=== PATIENT | male | born 1980 | race African-American/Black ===

== ENCOUNTER 2016-03-24 11:44 | Emergency (ER) | payer OTHER ==
--- NOTE | 2016-03-24 14:26 | EDDOCDS ---
Physician Documentation [facility] Name: Tera Felipe Age: 35 yrs Sex: Male : 1980 Arrival Date: 03/24/2016 Time: 11:44 Bed Triage 1 Private MD: Lyle Pa P. Disposition: 03/24/16 13:56 Discharged to Home/Self Care. Impression: Sprain of unspecified site of left knee. - Condition is Stable. - Discharge Instructions: Knee Sprain, [id number]. - Prescriptions for Mobic 7.5 mg Oral Tablet - take 1 tablet by ORAL route once daily take with food; 20 tablet. - Medication Reconciliation, Local Pharmacy Hours form. - Follow up: [facility]; When: 1 - 2 days; Reason: Further diagnostic work-up, Recheck today's complaints, Continuance of care. Follow up: Emergency Department; Reason: Worsening of conditions. - Problem is new. - Symptoms have improved. Historical: - Allergies: no known allergies; - Home Meds: 1. Vitamin D Oral 24976 unit weekly - PMHx: vitamin d diff; - PSHx: Reconstruction of nose; - Social history: Smoking status: Patient states former smoker of tobacco. No barriers to communication noted, The patient speaks fluent Senegalese. - Family history: Not pertinent. - : The pt / caregiver states he / she is not on anticoagulants. Home medication list is obtained from the patient. - Exposure Risk Screening:: None identified. Vital Signs: 03/24 11:45 BP 142 / 87; Pulse 60; Resp 16; Temp 98.7; Pulse Ox 100% on R/A; Weight 124.74 kg / 275 elp lbs; Height 6 ft. 3 in. (190.50 cm); Pain 7/10; 14:18 BP 131 / 89; Pulse 54; Resp 18; Pulse Ox 98% ; Pain 0/10; ms18 11:45 Body Mass Index 34.37 (124.74 kg, 190.50 cm) elp Procedures: 13:55 Fracture care/splinting: Splint applied to left knee using knee immobilizer, applied by ef1 nurse. Examined by me, post splint application: neurovascular intact, 2+ distal pulses palpable, brisk capillary refill noted, Patient tolerated well. MDM: 12:24 Knee, Complete Ordered. EDMS 13:39 Financial registration complete. mm15 13:55 Knee Immobilizer ordered. ef1 13:55 Crutches ordered. ef1 Signatures: Dispatcher [employer] EDMS Padmini Miguel, KIMBERLI AG ef1 Rekha Mishra,RN RN rs3 Candelaria Dee mm15 Jannet BowensRN RN ms18 MTDD
--- NOTE | 2016-03-24 14:26 | EDDOCDS ---
Nurse's Notes [facility] Name: Trea Felipe Age: 35 yrs Sex: Male : 1980 Arrival Date: 03/24/2016 Time: 11:44 Bed Triage 1 Private MD: Lyle Pa P. Diagnosis: Sprain of unspecified site of left knee Presentation: 03/24 11:53 Presenting complaint: Patient states: L knee pain/stiffness after playing basket ball rs3 yesterday. NO known injury. applied ice last night. no improvement with pain. Adult Sepsis Screening: The patient does not have new or worsening altered mentation. Patient's respiratory rate is less than 22. Systolic blood pressure is greater than 100. Patient has a qSOFA score of 0- Negative Sepsis Screen. Suicide/Homicide risk assessment- the patient denies having any suicidal and/or homicidal ideations and does not present with any other emotional, behavioral or mental health complaints. 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 Transition of care: patient was not received from another setting of care. 11:53 Acuity: PAOLA Level 4 rs3 11:53 Method Of Arrival: Walkin/Carried/Asstd rs3 Triage Assessment: 11:55 General: Appears in no apparent distress. Pain: Location: left knee. Pt Declines HIV rs3 testing. Historical: - Allergies: no known allergies; - Home Meds: 1. Vitamin D Oral 81406 unit weekly - PMHx: vitamin d diff; - PSHx: Reconstruction of nose; - Social history: Smoking status: Patient states former smoker of tobacco. No barriers to communication noted, The patient speaks fluent Greenlandic. - Family history: Not pertinent. - : The pt / caregiver states he / she is not on anticoagulants. Home medication list is obtained from the patient. - Exposure Risk Screening:: None identified. Screenin:23 Screening information is obtained from the patient. Fall risk: No risks identified. ms18 Assistance ADL's: requires no assistance with activities of daily living. Abuse/DV Screen: The patient / caregiver reports he/she is: not in a situation that causes fear, pain or injury. Nutritional screening: No deficits noted. Advance Directives: There is no living will. home support is adequate. Assessment: 14:18 General: Appears in no apparent distress, comfortable, Behavior is appropriate for age, ms18 cooperative. Pain: Denies pain. Neurological: Level of Consciousness is awake, alert, obeys commands, Oriented to person, place, time. Respiratory: No deficits noted. Derm: Skin is pink, warm & dry. normal. Musculoskeletal: Range of motion intact in all extremities. No deformity noted Swelling absent. Vital Signs: 11:45 BP 142 / 87; Pulse 60; Resp 16; Temp 98.7; Pulse Ox 100% on R/A; Weight 124.74 kg; elp Height 6 ft. 3 in. (190.50 cm); Pain 7/10; 14:18 BP 131 / 89; Pulse 54; Resp 18; Pulse Ox 98% ; Pain 0/10; ms18 11:45 Body Mass Index 34.37 (124.74 kg, 190.50 cm) [facility] Vitals: 11:45 Log In Time: March 24, 2016 at 11:43. [facility] ED Course: 11:45 Patient visited by Coty Campbell PCA. elp 11:45 Lyle Pa is Private Physician. elp 11:45 Patient moved to Waiting elp 11:46 Patient visited by Coty Campbell PCA. elp 11:46 Patient moved to Pre RCE elp 11:55 Triage Initiated rs3 13:02 Patient moved to Triage 1 ar3 13:32 Padmini [facility] ef1 13:32 Angie Brand MD is Attending Physician. ef1 13:33 Patient visited by Padmini Miguel PA-C. ef1 13:56 Orthopaedics, [facility] is Referral Physician. ef1 14:16 Crutch training done. Knee immobilizer applied on left knee. ar3 14:17 Patient visited by Lexie Monge PCA. ar3 14:23 The patient / caregiver is instructed regarding the plan of care and ED course. Patient ms18 has correct armband on for positive identification. Property sent home with patient. :Personal belongings accompany Pt. 14:23 No IV's were initiated during this patient's visit. No procedures done that require ms18 assistance. Crutch training done. Knee immobilizer applied on left knee. Patient with positive distal sensation and brisk distal capillary refill after application. Order Results: There are currently no results for this order. Outcome: 13:56 Discharge ordered by Provider. ef1 14:23 Discharge Assessment: Patient awake, alert and oriented x 3. No cognitive and/or ms18 functional deficits noted. Patient verbalized understanding of disposition instructions. patient administered narcotics - no. The following High Risk Discharge criteria are identified: None. Discharged to home ambulatory, with crutches. Condition: good Condition: stable Condition: improved. Discharge instructions given to patient, Instructed on discharge instructions, follow up and referral plans. medication usage, Rest, Ice, Compression and Elevation. crutch walking, Demonstrated understanding of instructions, medications, Pt was receptive of discharge instructions/ teaching. Prescriptions given X 1. No special radiology studies were completed. 14:25 Patient left the ED. ms18 Signatures: Padmini Miguel, KIMBERLI PASharmaineC ef1 Rekha Mishra,RN RN rs3 Lexie Monge, DIRECTOR OF PROMOTIONS DIRECTOR OF PROMOTIONS ar3 Coty Campbell, DIRECTOR OF PROMOTIONS DIRECTOR OF PROMOTIONS Jannet Hernandez,ORTEGA RN ms18 MTDD
--- NOTE | 2016-03-25 11:16 | REP ---
The left knee five views : There is no fracture or dislocation. Mineralization and joint spaces are normal. There are no calcifications or foreign bodies. Impression: Negative left knee . Signed by Morgan Beth MD 03/24/2016 01:02 P
--- NOTE | 2016-03-26 15:27 | EDDOCDS ---
Physician Documentation [facility] Name: Tera Felipe Age: 35 yrs Sex: Male : 1980 Arrival Date: 03/24/2016 Time: 11:44 Bed Triage 1 Private MD: Lyle Pa P. Disposition: 03/24/16 13:56 Discharged to Home/Self Care. Impression: Sprain of unspecified site of left knee. - Condition is Stable. - Discharge Instructions: Knee Sprain, [id number]. - Prescriptions for Mobic 7.5 mg Oral Tablet - take 1 tablet by ORAL route once daily take with food; 20 tablet. - Medication Reconciliation, Local Pharmacy Hours form. - Follow up: [facility]opa[facility]; When: 1 - 2 days; Reason: Further diagnostic work-up, Recheck today's complaints, Continuance of care. Follow up: Emergency Department; Reason: Worsening of conditions. - Problem is new. - Symptoms have improved. Historical: - Allergies: no known allergies; - Home Meds: 1. Vitamin D Oral 32241 unit weekly - PMHx: vitamin d diff; - PSHx: Reconstruction of nose; - Social history: Smoking status: Patient states former smoker of tobacco. No barriers to communication noted, The patient speaks fluent Senegalese. - Family history: Not pertinent. - : The pt / caregiver states he / she is not on anticoagulants. Home medication list is obtained from the patient. - Exposure Risk Screening:: None identified. Vital Signs: 03/24 11:45 BP 142 / 87; Pulse 60; Resp 16; Temp 98.7; Pulse Ox 100% on R/A; Weight 124.74 kg / 275 elp lbs; Height 6 ft. 3 in. (190.50 cm); Pain 7/10; 14:18 BP 131 / 89; Pulse 54; Resp 18; Pulse Ox 98% ; Pain 0/10; ms18 11:45 Body Mass Index 34.37 (124.74 kg, 190.50 cm) elp Procedures: 13:55 Fracture care/splinting: Splint applied to left knee using knee immobilizer, applied by ef1 nurse. Examined by me, post splint application: neurovascular intact, 2+ distal pulses palpable, brisk capillary refill noted, Patient tolerated well. MDM: 12:24 Knee, Complete Ordered. EDMS 13:39 Financial registration complete. mm15 13:55 Knee Immobilizer ordered. ef1 13:55 Crutches ordered. ef1 14:27 [facility] Payment Agreement was scanned into [employer] and attached to record. mm15 18:44 T-Sheet-- Draft Copy was scanned into [facility] and attached to record. klr Signatures: Dispatcher [employer] EDMS Padmini Miguel PA-C PA-C ef1 Rekha Mishra RN RN rs3 Candelaria Dee mm15 Jannet Bowens RN RN ms18 Kaylyn Hawthorne klr The chart was reviewed and I authenticate all verbal orders and agree with the evaluation and treatment provided.Attachments: 14:27 [facility] Payment Agreement mm15 18:44 T-Sheet-- Draft Copy klr Chart Complete MTDD
--- NOTE | 2016-03-26 15:27 | EDDOCDS ---
Physician Documentation [facility] Name: Tera Felipe Age: 35 yrs Sex: Male : 1980 Arrival Date: 03/24/2016 Time: 11:44 Bed Triage 1 Private MD: Lyle Pa P. Disposition: 03/24/16 13:56 Discharged to Home/Self Care. Impression: Sprain of unspecified site of left knee. - Condition is Stable. - Discharge Instructions: Knee Sprain, [id number]. - Prescriptions for Mobic 7.5 mg Oral Tablet - take 1 tablet by ORAL route once daily take with food; 20 tablet. - Medication Reconciliation, Local Pharmacy Hours form. - Follow up: [facility]opa[facility]; When: 1 - 2 days; Reason: Further diagnostic work-up, Recheck today's complaints, Continuance of care. Follow up: Emergency Department; Reason: Worsening of conditions. - Problem is new. - Symptoms have improved. Historical: - Allergies: no known allergies; - Home Meds: 1. Vitamin D Oral 49448 unit weekly - PMHx: vitamin d diff; - PSHx: Reconstruction of nose; - Social history: Smoking status: Patient states former smoker of tobacco. No barriers to communication noted, The patient speaks fluent Maldivian. - Family history: Not pertinent. - : The pt / caregiver states he / she is not on anticoagulants. Home medication list is obtained from the patient. - Exposure Risk Screening:: None identified. Vital Signs: 03/24 11:45 BP 142 / 87; Pulse 60; Resp 16; Temp 98.7; Pulse Ox 100% on R/A; Weight 124.74 kg / 275 elp lbs; Height 6 ft. 3 in. (190.50 cm); Pain 7/10; 14:18 BP 131 / 89; Pulse 54; Resp 18; Pulse Ox 98% ; Pain 0/10; ms18 11:45 Body Mass Index 34.37 (124.74 kg, 190.50 cm) elp Procedures: 13:55 Fracture care/splinting: Splint applied to left knee using knee immobilizer, applied by ef1 nurse. Examined by me, post splint application: neurovascular intact, 2+ distal pulses palpable, brisk capillary refill noted, Patient tolerated well. MDM: 12:24 Knee, Complete Ordered. EDMS 13:39 Financial registration complete. mm15 13:55 Knee Immobilizer ordered. ef1 13:55 Crutches ordered. ef1 14:27 [facility] Payment Agreement was scanned into [employer] and attached to record. mm15 18:44 T-Sheet-- Draft Copy was scanned into [employer] and attached to record. klr Signatures: Dispatcher [employer] EDMS Padmini Miguel PA-C PA-C ef1 Rekha Mishra RN RN rs3 Candelaria Dee mm15 Jannet Bowens RN RN ms18 Kaylyn Hawthorne klr The chart was reviewed and I authenticate all verbal orders and agree with the evaluation and treatment provided.Attachments: 14:27 [facility] Payment Agreement mm15 18:44 T-Sheet-- Draft Copy klr Chart Complete MTDD
--- NOTE | 2016-03-26 15:27 | EDDOCDS ---
Nurse's Notes [facility] Name: Tera Felipe Age: 35 yrs Sex: Male : 1980 Arrival Date: 03/24/2016 Time: 11:44 Bed Triage 1 Private MD: Lyle Pa P. Diagnosis: Sprain of unspecified site of left knee Presentation: 03/24 11:53 Presenting complaint: Patient states: L knee pain/stiffness after playing basket ball rs3 yesterday. NO known injury. applied ice last night. no improvement with pain. Adult Sepsis Screening: The patient does not have new or worsening altered mentation. Patient's respiratory rate is less than 22. Systolic blood pressure is greater than 100. Patient has a qSOFA score of 0- Negative Sepsis Screen. Suicide/Homicide risk assessment- the patient denies having any suicidal and/or homicidal ideations and does not present with any other emotional, behavioral or mental health complaints. Status: Patient is not a environmental service aide or dependent. Transition of care: patient was not received from another setting of care. 11:53 Acuity: PAOLA Level 4 rs3 11:53 Method Of Arrival: Walkin/Carried/Asstd rs3 Triage Assessment: 11:55 General: Appears in no apparent distress. Pain: Location: left knee. Pt Declines HIV rs3 testing. Historical: - Allergies: no known allergies; - Home Meds: 1. Vitamin D Oral 00958 unit weekly - PMHx: vitamin d diff; - PSHx: Reconstruction of nose; - Social history: Smoking status: Patient states former smoker of tobacco. No barriers to communication noted, The patient speaks fluent Portuguese. - Family history: Not pertinent. - : The pt / caregiver states he / she is not on anticoagulants. Home medication list is obtained from the patient. - Exposure Risk Screening:: None identified. Screenin:23 Screening information is obtained from the patient. Fall risk: No risks identified. ms18 Assistance ADL's: requires no assistance with activities of daily living. Abuse/DV Screen: The patient / caregiver reports he/she is: not in a situation that causes fear, pain or injury. Nutritional screening: No deficits noted. Advance Directives: There is no living will. home support is adequate. Assessment: 14:18 General: Appears in no apparent distress, comfortable, Behavior is appropriate for age, ms18 cooperative. Pain: Denies pain. Neurological: Level of Consciousness is awake, alert, obeys commands, Oriented to person, place, time. Respiratory: No deficits noted. Derm: Skin is pink, warm & dry. normal. Musculoskeletal: Range of motion intact in all extremities. No deformity noted Swelling absent. Vital Signs: 11:45 BP 142 / 87; Pulse 60; Resp 16; Temp 98.7; Pulse Ox 100% on R/A; Weight 124.74 kg; elp Height 6 ft. 3 in. (190.50 cm); Pain 7/10; 14:18 BP 131 / 89; Pulse 54; Resp 18; Pulse Ox 98% ; Pain 0/10; ms18 11:45 Body Mass Index 34.37 (124.74 kg, 190.50 cm) [facility] Vitals: 11:45 Log In Time: March 24, 2016 at 11:43. [facility] ED Course: 11:45 Patient visited by Coty Campbell PCA. elp 11:45 Lyle Pa is Private Physician. elp 11:45 Patient moved to Waiting elp 11:46 Patient visited by Coty Campbell PCA. elp 11:46 Patient moved to Pre RCE elp 11:55 Triage Initiated rs3 13:02 Patient moved to Triage 1 ar3 13:32 [facility] ef1 13:32 Angie Brand MD is Attending Physician. ef1 13:33 Patient visited by Padmini Miguel PA-C. ef1 13:[facility]. ef1 14:16 Crutch training done. Knee immobilizer applied on left knee. ar3 14:17 Patient visited by Lexie Monge PCA. ar3 14:23 The patient / caregiver is instructed regarding the plan of care and ED course. Patient ms18 has correct armband on for positive identification. Property sent home with patient. :Personal belongings accompany Pt. 14:23 No IV's were initiated during this patient's visit. No procedures done that require ms18 assistance. Crutch training done. Knee immobilizer applied on left knee. Patient with positive distal sensation and brisk distal capillary refill after application. 14:27 [facility] Payment Agreement was scanned into [employer] and attached to record. mm15 18:44 T-Sheet-- Draft Copy was scanned into [employer] and attached to record. klr 03/25 11:20 Knee, Complete Returned. EDMS Order Results: Radiology Order: Knee, Complete Test: Knee, Complete REASON FOR EXAMINATION: Trauma; The left knee five views :; ; There is no fracture or dislocation.; ; Mineralization and joint spaces are normal.; ; There are no calcifications or foreign bodies.; ; Impression:; ; Negative left knee .; ; ; Signed by; Morgan Beth MD 03/24/2016 01:02 P; Outcome: 03/24 13:56 Discharge ordered by Provider. ef1 14:23 Discharge Assessment: Patient awake, alert and oriented x 3. No cognitive and/or ms18 functional deficits noted. Patient verbalized understanding of disposition instructions. patient administered narcotics - no. The following High Risk Discharge criteria are identified: None. Discharged to home ambulatory, with crutches. Condition: good Condition: stable Condition: improved. Discharge instructions given to patient, Instructed on discharge instructions, follow up and referral plans. medication usage, Rest, Ice, Compression and Elevation. crutch walking, Demonstrated understanding of instructions, medications, Pt was receptive of discharge instructions/ teaching. Prescriptions given X 1. No special radiology studies were completed. 14:25 Patient left the ED. ms18 Signatures: Dispatcher [facility] Padmini Miguel PA-C PA-C ef1 Rekha Mishra,RN RN rs3 Lexie Monge, INSIDE WIREMAN INSIDE WIREMAN ar3 Candelaria Dee mm15 Coty Campbell, INSIDE WIREMAN INSIDE WIREMAN Jannet Hernandez RN RN ms18 Kaylyn Hawthorne Chart Complete MTDD
== END 2016-03-24 14:25 | disposition home or self-care (01) ==
LOC: M ED 11:44
DX: S83.92XA Sprain of unspecified site of left knee, initial encounter (principal); X58.XXXA Exposure to other specified factors, initial encounter; Y92.89 Other specified places as the place of occurrence of the external cause; Y93.67 Activity, basketball; Y99.8 Other external cause status; E55.9 Vitamin D deficiency, unspecified

== ENCOUNTER → 2017-02-04 | Outpatient (REF) | payer OTHER | LOC: M LAB REF 16:26 | PROVIDERS: ATTEND Physician Assistant | DX: J02.9 Acute pharyngitis, unspecified (principal) ==

== ENCOUNTER → 2017-09-22 | Outpatient (REF) | payer BC ==
[2017-09-22 12:28] LABS: BASO % 0.4 % (0.0-1.0); EOS # 0.2 10^3/uL (0.0-0.50); EOS % 3.7 % (0.0-3.0); HEMATOCRIT 38.3 % (42.0-52.0); HEMOGLOBIN 12.9 g/dl (13.5-17.5); IMMATURE GRANULOCYTE % 0.2 % (0-3.0); LYMPH # 1.7 10^3/uL (1.5-4.5); LYMPH % 36.4 % (24.0-44.0); MEAN CORPUSCULAR HEMOGLOBIN 30.1 pg (27.0-33.0); MEAN CORPUSCULAR HGB CONC 33.7 g/dl (32.0-36.5); MEAN CORPUSCULAR VOLUME 89.3 fl (80.0-96.0); MONO # 0.5 10^3/uL (0.0-0.8); MONO % 11.2 % (0.0-5.0); NEUTROPHILS # 2.2 10^3/uL (1.8-7.7); NEUTROPHILS % 48.1 % (36.0-66.0); PLATELET COUNT, AUTOMATED 263 10^3/uL (150-450); RED BLOOD COUNT 4.29 10^6/uL (4.30-6.10); RED CELL DISTRIBUTION WIDTH 13.1 % (11.5-14.5); WHITE BLOOD COUNT 4.6 10^3/uL (4.0-10.0)
[2017-09-22 12:50] LABS: TOTAL 25(OH) VITAMIN D 53.9 NG/ML (30.0-100.0)
[2017-09-22 13:08] LABS: ALBUMIN 3.6 GM/DL (3.2-5.2); ALKALINE PHOSPHATASE 76 U/L (45-117); ALT/SGPT 27 U/L (12-78); ANION GAP 8 MEQ/L (8-16); AST/SGOT 21 U/L (7-37); BILIRUBIN,TOTAL 0.4 MG/DL (0.2-1.0); BLOOD UREA NITROGEN 8 MG/DL (7-18); CALCIUM LEVEL 8.6 MG/DL (8.5-10.1); CARBON DIOXIDE LEVEL 28 MEQ/L (21-32); CHLORIDE LEVEL 110 MEQ/L (98-107); CHOLESTEROL LEVEL 149 MG/DL (<200); CHOLESTEROL RISK RATIO 2.442 (<5); CREATININE FOR GFR 1.05 MG/DL (0.70-1.30); GLOMERULAR FILTRATION RATE > 60.0 (>60); GLUCOSE, FASTING 97 MG/DL (70-100); HDL CHOLESTEROL 61 MG/DL (>40); LDL CHOLESTEROL 78.8 MG/DL (<100); NON-HDL-C 88 MG/DL; POTASSIUM SERUM 4.4 MEQ/L (3.5-5.1); SODIUM LEVEL 146 MEQ/L (136-145); THYROID STIMULATING HORMONE 0.914 uIU/ML (0.358-3.740); TOTAL PROTEIN 6.6 GM/DL (6.4-8.2); TRIGLYCERIDES LEVEL 46 MG/DL (<150)
== END ==
LOC: M LABDRAW1 08:50
DX: R03.0 Elevated blood-pressure reading, without diagnosis of hypertension (principal); E55.9 Vitamin D deficiency, unspecified
CPT/HCPCS: 84443

== ENCOUNTER 2017-11-17 08:27 | Day surgery (SDC) | payer BC ==
[2017-11-17] MEDS: NS 1,000 ML IV (07:00)
[2017-11-17] MEDS ORDERED: LIDOCAINE 2% INJ 100 MG/5 ML SDV (FOR ANES.) As Ordered (09:17)
[2017-11-17] MEDS ORDERED: PROPOFOL 200 MG/20 ML VIAL As Ordered ×3 (09:17→10:01)
[2017-11-17] MEDS ORDERED: fentaNYL 100 MCG/2 ML INJECTION (J3010) As Ordered (09:18)
== END 2017-11-17 11:02 | disposition home or self-care (01) ==
LOC: M OPP 08:27
DX: R10.30 Lower abdominal pain, unspecified (principal); K62.5 Hemorrhage of anus and rectum; K58.2 Mixed irritable bowel syndrome; R19.4 Change in bowel habit; K64.0 First degree hemorrhoids; K57.30 Diverticulosis of large intestine without perforation or abscess without bleeding; R10.13 Epigastric pain; R11.2 Nausea with vomiting, unspecified; K22.8 Other specified diseases of esophagus; K44.9 Diaphragmatic hernia without obstruction or gangrene; F17.210 Nicotine dependence, cigarettes, uncomplicated
CPT/HCPCS: 45378

== ENCOUNTER 2019-08-24 21:52 | Emergency (ER) | payer OTHER, BC ==
[~2019-08-24] VITALS: Ht 190.5 cm; Wt 103.9 kg
[~2019-08-24 21:52] MED LIST: VITA50005 PO
[2019-08-24] MEDS ORDERED: LIDOCAINE 5% (LIDODERM) PATCH TD ONE (22:30)
[2019-08-24] MEDS ORDERED: ISOVUE-370 76% 100ML VIAL As Ordered ONE (22:36)
[2019-08-24 22:38] LABS: BASO % 0.3 % (0.0-1.0); EOS # 0.1 10^3/uL (0.0-0.5); EOS % 1.8 % (0.0-3.0); HEMATOCRIT 40.7 % (42.0-52.0); HEMOGLOBIN 13.8 g/dl (13.5-17.5); LYMPH % 41.7 % (24.0-44.0); MEAN CORPUSCULAR HEMOGLOBIN 29.9 pg (27.0-33.0); MEAN CORPUSCULAR HGB CONC 33.9 g/dl (32.0-36.5); MEAN CORPUSCULAR VOLUME 88.1 fl (80.0-96.0); MONO # 0.7 10^3/uL (0.0-0.8); NEUTROPHILS # 3.3 10^3/uL (1.5-8.5); NEUTROPHILS % 46.1 % (36.0-66.0); PLATELET COUNT, AUTOMATED 234 10^3/uL (150-450); RED BLOOD COUNT 4.62 10^6/uL (4.30-6.10); WHITE BLOOD COUNT 7.2 10^3/uL (4.0-10.0)
[2019-08-25] MEDS ORDERED: KETOROLAC 30 MG/ML 1ML VIAL IV ONE (00:45)
[2019-08-25 01:07] VITALS: BP 131/82
--- NOTE | 2019-08-25 08:43 | REP ---
REPEAT DICTATION CT PULMONARY ANGIOGRAM: With IV contrast. Preliminary report is provided at the time of the exam by [facility]. HISTORY: Shortness of breath. Pain with inspiration. History of rib fracture. No comparison CT study. CONTRAST DOSE: 75 mL of Isovue [address] TECHNIQUE: Helical scanning is acquired and overlapping 1.5 mm and contiguous 3 mm axial images are reformatted. In addition, maximum intensity projection and multiplanar re-formation images are generated in sagittal and coronal imaging projections. CT PULMONARY ANGIOGRAPHIC FINDINGS: There is good opacification of the pulmonary arterial tree. There is no CT evidence of pulmonary embolism. Thoracic aorta enhances homogeneously and there is no evidence of aneurysm or dissection. There is mild bilateral gynecomastia. No pleural or pericardial effusion is seen. No hilar or mediastinal adenopathy is observed on either side. Maximal intensity projection images show no vessel cutoff or filling defect. There is no evidence of pulmonary nodule or mass lesion. No infiltrate is seen. No rib, sternal, shoulder girdle, or spine fracture is appreciated. The visualized upper abdominal structures are unremarkable. IMPRESSION: No CT evidence of pulmonary embolus. No active disease. Electronically Signed by Pino Ma MD 08/25/2019 10:54 A
[2019-08-25] MEDS ORDERED: **NOTE PATIENT COMMENT** MISC XX ONE (10:00)
== END 2019-08-25 01:09 | disposition home or self-care (01) ==
LOC: M ED 21:52
DX: R07.89 Other chest pain (principal); R06.02 Shortness of breath; Z87.81 Personal history of (healed) traumatic fracture; Z79.899 Other long term (current) drug therapy
CPT/HCPCS: 71275; 80047; 85025; 99284; Q9967

== ENCOUNTER → 2020-03-17 | Outpatient (CLI) | payer BC ==
[2020-03-17 13:34] LABS: ALBUMIN 3.6 GM/DL (3.2-5.2); ALT/SGPT 20 U/L (12-78); BILIRUBIN,TOTAL 0.4 MG/DL (0.2-1.0); BLOOD UREA NITROGEN 12 MG/DL (7-18); CALCIUM LEVEL 9.4 MG/DL (8.5-10.1); CARBON DIOXIDE LEVEL 29 MEQ/L (21-32); CHLORIDE LEVEL 108 MEQ/L (98-107); CHOLESTEROL LEVEL 185 MG/DL (<200); CHOLESTEROL RISK RATIO 1.968 (<5); CREATININE FOR GFR 1.12 MG/DL (0.70-1.30); GLOMERULAR FILTRATION RATE > 60.0 (>60); GLUCOSE, FASTING 96 MG/DL (70-100); HDL CHOLESTEROL 94 MG/DL (>40); LDL CHOLESTEROL 83 MG/DL (<100); NON-HDL-C 91 MG/DL; POTASSIUM SERUM 4.5 MEQ/L (3.5-5.1); SODIUM LEVEL 143 MEQ/L (136-145); TOTAL PROTEIN 6.5 GM/DL (6.4-8.2); TRIGLYCERIDES LEVEL 41 MG/DL (<150)
[2020-03-17 14:21] LABS: HIV 1&2 SCREEN CENTAUR NEGATIVE (NEGATIVE)
[2020-03-17 14:45] LABS: CHLAMYDIA DNA AMPLIFICATION NEGATIVE (NEGATIVE); GC DNA AMPLIFICATION NEGATIVE (NEGATIVE)
== END ==
LOC: M PLALAB 11:10
PROVIDERS: ATTEND Nurse Practitioner Family
DX: Z00.00 Encounter for general adult medical examination without abnormal findings (principal); Z11.3 Encounter for screening for infections with a predominantly sexual mode of transmission

== ENCOUNTER → 2020-03-22 | Outpatient (REF) | payer BC | LOC: M LAB REF 12:01 | PROVIDERS: ATTEND Physician Assistant | DX: R05 Cough (principal); R53.83 Other fatigue; R68.83 Chills (without fever) ==

== ENCOUNTER → 2020-05-30 | Outpatient (REF) | payer BC | LOC: M LAB REF 12:09 | PROVIDERS: ATTEND Physician Assistant Medical | DX: J02.9 Acute pharyngitis, unspecified (principal) ==

== ENCOUNTER → 2021-05-24 | Outpatient (CLI) | payer MEDICAID ==
[2021-05-24 10:30] LABS: BASO % 0.6 % (0.0-1.0); EOS # 0.2 10^3/uL (0.0-0.5); EOS % 3.5 % (0.0-3.0); HEMATOCRIT 42.7 % (42.0-52.0); HEMOGLOBIN 14.3 g/dl (13.5-17.5); LYMPH # 2.4 10^3/uL (1.5-5.0); MEAN CORPUSCULAR HEMOGLOBIN 30.2 pg (27.0-33.0); MEAN CORPUSCULAR HGB CONC 33.5 g/dl (32.0-36.5); MEAN CORPUSCULAR VOLUME 90.3 fl (80.0-96.0); MONO # 0.6 10^3/uL (0.0-0.8); MONO % 10.8 % (2.0-8.0); NEUTROPHILS # 1.9 10^3/uL (1.5-8.5); NEUTROPHILS % 37.9 % (36.0-66.0); PLATELET COUNT, AUTOMATED 309 10^3/uL (150-450); RED BLOOD COUNT 4.73 10^6/uL (4.30-6.10); WHITE BLOOD COUNT 5.1 10^3/uL (4.0-10.0)
[2021-05-24 10:59] LABS: ERYTHROCYTE SEDIMENTATION RATE 2 mm/hr (0-15)
[2021-05-24 11:31] LABS: ALT/SGPT 24 U/L (12-78); BILIRUBIN,TOTAL 0.6 MG/DL (0.2-1.0); BLOOD UREA NITROGEN 16 MG/DL (7-18); CALCIUM LEVEL 9.1 MG/DL (8.5-10.1); CARBON DIOXIDE LEVEL 27 MEQ/L (21-32); CHLORIDE LEVEL 108 MEQ/L (98-107); CREATININE FOR GFR 1.16 MG/DL (0.70-1.30); FREE T4 0.85 NG/DL (0.76-1.46); GLOMERULAR FILTRATION RATE > 60.0 (>60); GLUCOSE, FASTING 92 MG/DL (70-100); MAGNESIUM LEVEL 2.1 MG/DL (1.8-2.4); POTASSIUM SERUM 4.8 MEQ/L (3.5-5.1); SODIUM LEVEL 140 MEQ/L (136-145); TOTAL PROTEIN 7.2 GM/DL (6.4-8.2)
[2021-05-25 16:09] LABS: ANTINUCLEAR ANTIBODIES DIRECT Negative (Negative); EBV AB TO NUCLEAR ANTIGEN >600.0 U/mL (0.0-17.9); EBV VIRAL CAPSID AG IgM <36.0 U/mL (0.0-35.9); Lyme Disease IgG/IgM Antibodie <0.91 ISR (0.00-0.90); Lyme Disease IgM Ab Quantitati <0.80 index (0.00-0.79)
== END ==
LOC: M PLAIMG 08:51
PROVIDERS: ATTEND Nurse Practitioner Family
DX: R07.89 Other chest pain (principal)

== ENCOUNTER → 2021-06-14 | Outpatient (CLI) | payer MEDICAID ==
[2021-06-14 15:22] LABS: BASO % 0.2 % (0.0-1.0); EOS # 0.1 10^3/uL (0.0-0.5); EOS % 2.9 % (0.0-3.0); HEMATOCRIT 40.7 % (42.0-52.0); HEMOGLOBIN 13.9 g/dl (13.5-17.5); LYMPH # 1.7 10^3/uL (1.5-5.0); LYMPH % 38.2 % (24.0-44.0); MEAN CORPUSCULAR HEMOGLOBIN 30.7 pg (27.0-33.0); MEAN CORPUSCULAR HGB CONC 34.2 g/dl (32.0-36.5); MEAN CORPUSCULAR VOLUME 89.8 fl (80.0-96.0); MONO # 0.5 10^3/uL (0.0-0.8); MONO % 10.4 % (2.0-8.0); NEUTROPHILS # 2.2 10^3/uL (1.5-8.5); NEUTROPHILS % 47.9 % (36.0-66.0); PLATELET COUNT, AUTOMATED 286 10^3/uL (150-450); RED BLOOD COUNT 4.53 10^6/uL (4.30-6.10); WHITE BLOOD COUNT 4.5 10^3/uL (4.0-10.0)
[2021-06-14 15:44] LABS: ERYTHROCYTE SEDIMENTATION RATE 3 mm/hr (0-15)
[2021-06-14 15:48] LABS: C REACTIVE PROTEIN QUANTITATIV < 0.30 MG/DL (0.00-0.30); NT-PRO BNP 19 PG/ML (<125)
== END ==
LOC: M PLALAB 14:16
PROVIDERS: ATTEND Internal Medicine Cardiovascular Disease
DX: R07.2 Precordial pain (principal)

== ENCOUNTER → 2023-01-08 | Outpatient (REF) | payer BC | LOC: M LAB REF 16:24 | PROVIDERS: ATTEND Physician Assistant | DX: B34.9 Viral infection, unspecified (principal) ==

== ENCOUNTER → 2023-09-17 | Outpatient (CLI) | payer BC | LOC: M CARPUL 07:55 | PROVIDERS: ATTEND Nurse Practitioner Family | DX: R07.89 Other chest pain (principal) ==

== ENCOUNTER → 2025-01-06 | Outpatient (REF) | payer BC | LOC: M LAB REF 11:57 | PROVIDERS: ATTEND Physician Assistant | DX: B34.9 Viral infection, unspecified (principal) ==